=== PATIENT | male | born 1995 | race African-American/Black ===

== ENCOUNTER 2016-11-29 05:15 | Emergency (ER) | payer SELFPAY ==
[~2016-11-29] VITALS: Ht 167.6 cm; Wt 70.8 kg
[2016-11-29 05:28] VITALS: BP 132/82
[2016-11-29] MEDS ORDERED: BUPIVACAINE 0.5% 50 ML VIAL. ONE (05:45)
--- NOTE | 2016-11-29 05:49 | PHYS DOC ---
Past Medical History Past Medical History: No Pertinent History Past Surgical History: No Surgical History Alcohol Use: None Drug Use: None Adult General Chief Complaint Chief Complaint: DENTAL PROBLEM HPI HPI Patient is a 21 year old male who presents with right lower dental pain that has been present for a few days, constant, now severe. Was seen by prior outside ED and given amoxil and hydrocodone. Not enough relief with these meds. Denies trauma, facial swelling, difficulty breathing, difficulty swallowing, change of voice, fever or chills. Review of Systems Review of Systems Constitutional: Denies fever or chills [] Eyes: Denies change in visual acuity, redness, or eye pain [] HENT: Denies nasal congestion or sore throat [] Respiratory: Denies cough or shortness of breath [] Cardiovascular: No additional information not addressed in HPI [] GI: Denies abdominal pain, nausea, vomiting, bloody stools or diarrhea [] : Denies dysuria or hematuria [] Musculoskeletal: Denies back pain or joint pain [] Integument: Denies rash or skin lesions [] Neurologic: Denies headache, focal weakness or sensory changes [] Endocrine: Denies polyuria or polydipsia [] Current Medications Current Medications Current Medications Medications (Trade) Dose Ordered Sig/Yael Start Time Stop Time Status Last Admin Dose Admin Bupivacaine HCl (Marcaine 0.5%) 50 ml STK-MED ONCE 11/29/16 05:45 11/29/16 05:46 DC Bupivacaine HCl (Sensorcaine-Mpf 0.25%) 10 ml 1X ONCE 11/29/16 06:00 11/29/16 06:01 DC 11/29/16 05:53 10 ML Allergies Allergies Allergies Coded Allergies Type Severity Reaction Last Updated Verified No Known Drug Allergies 11/29/16 No Physical Exam Physical Exam Constitutional: Well developed, well nourished, no acute distress, non-toxic appearance. [] HENT: Normocephalic, atraumatic, bilateral external ears normal, oropharynx moist, no oral exudates, nose normal. Dental caries present, most notably at right lower anterior molar with anterior tooth fracture as well. No gumline tenderness, swelling or discoloration; No stridor, change of voice, tongue swelling, trismus, or drooling; Uvula is midline and floor is nontender[] Eyes: PERRLA, EOMI. [] Neck: Normal range of motion, supple. [] Cardiovascular: Extremities warm and well-perfused [] Lungs & Thorax: Respirations even and unlabored [] Skin: Warm, dry, no erythema, no rash. [] Back: Normal range of motion. [] Extremities: ROM intact. [] Neurologic: Alert and oriented X 3, normal motor function, normal sensory function, no focal deficits noted. [] Psychologic: Affect normal, judgement normal, mood normal. [] Current Patient Data Vital Signs Vital Signs Date Time Temp Pulse Resp B/P Pulse Ox O2 Delivery O2 Flow Rate FiO2 11/29/16 05:28 98.8 65 18 98 Room Air 98.8 Course & Med Decision Making Course & Med Decision Making Discussed he needs to see a dentist for definitive care. Dental block performed ; he tolerated this well. Return precautions given. He understands and agrees with plan. Dragon Disclaimer Dragon Disclaimer This electronic medical record was generated, in whole or in part, using a voice recognition dictation system. PROCEDURE Procedure Right inferior alveolar nerve block performed with bupivacaine, 6 mL. Adequate analgesia obtained. No complications. He tolerated procedure well. Departure Departure Impression: Primary Impression: Pain due to dental caries Disposition: HOME, SELF-CARE Condition: STABLE Referrals: NO PCP (PCP) Patient Instructions: Dental Pain, [id number] Additional Instructions: Continue your current medications. See a dentist within 24-48 hours. Return for any concerns. Mayra NELSON MD Nov 29, 2016 05:49
[2016-11-29] MEDS ORDERED: BUPIVACAINE MPF 0.25% 10 ML VIAL. IJ ONE (06:00)
== END 2016-11-29 06:12 | disposition home or self-care (01) ==
LOC: ER 05:15
DX: K02.9 Dental caries, unspecified (principal)
CPT/HCPCS: 64400; 99284; J3490